=== PATIENT | male | born 1995 | race Caucasian/White ===

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

== ENCOUNTER 2017-12-17 11:37 | Emergency (ER) | payer MEDICAID, OTHER, SELFPAY ==
[2017-12-17 16:14] LABS: CONTROL LINE MONO INT CTR LINE PRESENT; MONO SCRN NEGATIVE (NEGATIVE)
== END 2017-12-17 16:58 | disposition home or self-care (01) ==
LOC: M ED 11:37
DX: J02.9 Acute pharyngitis, unspecified (principal); F17.210 Nicotine dependence, cigarettes, uncomplicated
CPT/HCPCS: 86308

== ENCOUNTER 2018-01-31 22:50 | Emergency (ER) | payer OTHER | END 2018-02-01 00:43 | disposition left against medical advice (07) | LOC: M ED 22:50 | DX: R10.9 Unspecified abdominal pain (principal); Z53.21 Procedure and treatment not carried out due to patient leaving prior to being seen by health care provider ==

== ENCOUNTER 2018-10-12 21:02 | Emergency (ER) | payer OTHER, SELFPAY ==
[~2018-10-12] VITALS: Ht 185.4 cm; Wt 66.4 kg
[2018-10-12 21:18] VITALS: BP 119/69
== END 2018-10-12 22:00 | disposition home or self-care (01) ==
LOC: M ED 21:02
DX: F10.129 Alcohol abuse with intoxication, unspecified (principal); F41.9 Anxiety disorder, unspecified; F19.10 Other psychoactive substance abuse, uncomplicated

== ENCOUNTER 2019-03-21 23:02 | Emergency (ER) | payer SELFPAY ==
[~2019-03-21] VITALS: Ht 170.2 cm; Wt 65.9 kg
[2019-03-21] MEDS ORDERED: HALOPERIDOL 5 MG/ML VIAL (J1630) IM STA (23:13)
[2019-03-21] MEDS ORDERED: diphenhydrAMINE INJ 50MG/ML VIAL (J1200) IM STA (23:13)
[2019-03-22] MEDS ORDERED: TETANUS/DIPHTHERIA TOX ADSORB ADULT 0.5ML SYR/VIAL (90714) IM ONE
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
[2019-03-22 06:19] VITALS: BP 101/55
== END 2019-03-22 06:22 | disposition home or self-care (01) ==
LOC: M ED 23:02 → EDBD 23:02 → M ED 03-22 06:22
DX: F10.229 Alcohol dependence with intoxication, unspecified (principal); S01.01XA Laceration without foreign body of scalp, initial encounter; X58.XXXA Exposure to other specified factors, initial encounter; Y92.89 Other specified places as the place of occurrence of the external cause; F91.9 Conduct disorder, unspecified
CPT/HCPCS: 12001; 70450; 70486; 72125; 90471; 90714; 96372; 99285; J1200; J1630

== ENCOUNTER 2019-03-31 00:48 | Emergency (ER) | payer OTHER, SELFPAY ==
[~2019-03-31] VITALS: Ht 185.4 cm; Wt 68.2 kg
[2019-03-31 00:49] VITALS: BP 142/76
== END 2019-03-31 01:57 | disposition home or self-care (01) ==
LOC: M ED 00:48
DX: Z48.02 Encounter for removal of sutures (principal); F10.10 Alcohol abuse, uncomplicated; F17.210 Nicotine dependence, cigarettes, uncomplicated

== ENCOUNTER 2019-07-11 15:22 | Emergency (ER) | payer OTHER, SELFPAY ==
[~2019-07-11] VITALS: Ht 185.4 cm; Wt 73.4 kg
[2019-07-11] MEDS ORDERED: ISOVUE-370 76% 100ML VIAL (Q9967) As Ordered ONE (16:00)
--- NOTE | 2019-07-11 16:44 | REP ---
Clinical: Submental soft tissue swelling and cellulitis. Technique: Two Panorex views. Findings: The mandible is intact and no osseous lesions are identified. The dentition is within normal limits and no obvious periodontal abscess or abnormalities noted. Impression: No obvious lesions appreciated. Electronically Signed by Vargas Mahmood MD 07/11/2019 04:35 P
--- NOTE | 2019-07-11 16:50 | REP ---
Clinical: Submental pain and cellulitis. Technique: Axial contrast enhanced images from the skull base to the thoracic inlet with coronal and sagittal re-formations using 75 ml Isovue 370 intravenous contrast material. Findings: Mild/moderate soft tissue swelling involving the subcutaneous tissues superficial to the mandible and submental space appreciated. Coronal images raise the possibility of a very small midline submental phlegmon/forming collection which warrants correlation with physical examination ( axial image 49; coronal image 16). Nasopharyngeal, parapharyngeal, retropharyngeal, and hypopharyngeal soft tissues including the adenoid and tonsillar tissues appear relatively symmetric and normal. Epiglottis and aryepiglottic folds are normal. The airway is patent and midline. Moderate mucoperiosteal changes involving the right maxillary and ethmoid sinuses suggests acute / chronic sinusitis. The bilateral orbits are symmetric and normal. The osseous structures are intact. Mild right cervical adenopathy is suggested with lymph nodes measuring up to approximately 13 mm. Impression: Soft tissue swelling suggesting cellulitis with possible small submental phlegmon/forming abscess. Acute/chronic sinusitis involving the right ethmoid and maxillary sinuses. Mild right cervical adenopathy. Electronically Signed by Vargas Mahmood MD 07/11/2019 04:41 P
[2019-07-11] MEDS ORDERED: cefTRIAXone SOD 1 GM in D5W MINI-BAG PLUS 50 ML IV ONE (17:00)
[2019-07-11] MEDS ORDERED: KEFL500C17 PO (17:03)
[2019-07-11 17:56] VITALS: BP 131/75
== END 2019-07-11 17:57 | disposition home or self-care (01) ==
LOC: M ED 15:22
DX: L03.211 Cellulitis of face (principal); F10.10 Alcohol abuse, uncomplicated; F17.210 Nicotine dependence, cigarettes, uncomplicated
CPT/HCPCS: 70355; 70491; 80047; 96365; 99284; J0696; Q9967

== ENCOUNTER 2020-02-26 22:33 | Emergency (ER) | payer MEDICAID, OTHER, SELFPAY ==
[~2020-02-26] VITALS: Ht 185.4 cm; Wt 73.1 kg
[~2020-02-26 22:33] MED LIST: KEFL500C17 PO
--- NOTE | 2020-02-26 23:20 | REPVR ---
PROCEDURE INFORMATION: Exam: XR Left Hand Exam date and time: 02/26/2020 11:13 PM Age: 24 years old Clinical indication: Pain; Hand; Left TECHNIQUE: Imaging protocol: XR Left hand. Views: 3 or more views. COMPARISON: No relevant prior studies available. FINDINGS: Bones/joints: Normal. No fracture or dislocation. Soft tissues: Normal. IMPRESSION: Negative left hand. Electronically signed by: Aj Hawkins On 02/26/2020 23:20:04 PM
[2020-02-27 00:27] VITALS: BP 115/76
== END 2020-02-27 00:52 | disposition home or self-care (01) ==
LOC: M ED 22:33
DX: S69.92XA Unspecified injury of left wrist, hand and finger(s), initial encounter (principal); M79.645 Pain in left finger(s); X58.XXXA Exposure to other specified factors, initial encounter; Y92.9 Unspecified place or not applicable; F43.10 Post-traumatic stress disorder, unspecified; F41.9 Anxiety disorder, unspecified; F17.210 Nicotine dependence, cigarettes, uncomplicated; F12.10 Cannabis abuse, uncomplicated

== ENCOUNTER 2021-01-12 13:47 | Emergency (ER) | payer OTHER ==
[~2021-01-12] VITALS: Ht 185.4 cm; Wt 67.9 kg
[2021-01-12 13:47] VITALS: BP 121/70
== END 2021-01-12 17:26 | disposition left against medical advice (07) ==
LOC: M ED 13:47
DX: R05 Cough (principal); U07.1 COVID-19; F17.210 Nicotine dependence, cigarettes, uncomplicated; F12.20 Cannabis dependence, uncomplicated

== ENCOUNTER 2021-06-12 18:52 | Emergency (ER) | payer OTHER ==
[~2021-06-12] VITALS: Ht 185.4 cm; Wt 69.2 kg
[2021-06-12 18:53] VITALS: BP 130/71
== END 2021-06-12 20:30 | disposition left against medical advice (07) ==
LOC: M ED 18:52
DX: Z53.29 Procedure and treatment not carried out because of patient's decision for other reasons (principal)

== ENCOUNTER 2022-01-03 12:52 | Emergency (ER) | payer OTHER ==
[~2022-01-03] VITALS: Ht 185.4 cm; Wt 66.2 kg
[2022-01-03 12:54] VITALS: BP 118/70
== END 2022-01-03 13:33 | disposition left against medical advice (07) ==
LOC: M ED 12:52
DX: Z53.21 Procedure and treatment not carried out due to patient leaving prior to being seen by health care provider (principal)

== ENCOUNTER → 2022-09-06 | Outpatient (REF) | payer OTHER | LOC: M LAB REF 16:32 | PROVIDERS: ATTEND Physician Assistant | DX: B34.9 Viral infection, unspecified (principal) ==

== ENCOUNTER → 2022-09-17 | Outpatient (CLI) | payer OTHER | LOC: M RAD 16:33 | PROVIDERS: ATTEND Physician Assistant Medical | DX: M54.50 Low back pain, unspecified (principal) ==

== ENCOUNTER 2023-03-23 15:15 | Emergency (ER) | payer OTHER ==
[2023-03-23] MEDS ORDERED: MUCI120T PO (18:58)
[2023-03-23] MEDS ORDERED: ACET325C5 PO (18:58)
[2023-03-23] MEDS ORDERED: PSEU-52 PO (18:58)
[2023-03-23] MEDS ORDERED: IBUP80TA PO (18:58)
[2023-03-23 19:14] VITALS: BP 126/82; TEMP 99; O2SAT 100
== END 2023-03-23 19:21 | disposition home or self-care (01) ==
LOC: M ED 15:15
DX: J06.9 Acute upper respiratory infection, unspecified (principal); F17.290 Nicotine dependence, other tobacco product, uncomplicated

== ENCOUNTER 2023-04-02 20:31 | Emergency (ER) | payer OTHER ==
[~2023-04-02 20:31] MED LIST changes: +ACET325C5 PO; +IBUP80TA PO; +MUCI120T PO; +PSEU-52 PO
== END 2023-04-02 21:21 | disposition left against medical advice (07) ==
LOC: M ED 20:31 → EDBD 20:31 → M ED 21:21
DX: Z53.21 Procedure and treatment not carried out due to patient leaving prior to being seen by health care provider (principal)

== ENCOUNTER → 2023-09-23 | Outpatient (REF) | payer OTHER | LOC: M LAB REF 16:29 | PROVIDERS: ATTEND Nurse Practitioner Family | DX: L03.114 Cellulitis of left upper limb (principal) ==

== ENCOUNTER 2024-04-16 22:17 | Emergency (ER) | payer OTHER ==
[~2024-04-16] VITALS: Ht 182.9 cm; Wt 86.4 kg
[2024-04-16 22:32] VITALS: BP 152/89; TEMP 99.3; O2SAT 97
== END 2024-04-17 01:50 | disposition left against medical advice (07) ==
LOC: M ED 22:17
DX: Z53.21 Procedure and treatment not carried out due to patient leaving prior to being seen by health care provider (principal)

== ENCOUNTER → 2024-04-17 | Outpatient (CLI) | payer OTHER ==
[2024-04-17 16:20] LABS: BASO # 0.1 10^3/uL (0.0-0.2); BASO % 0.7 % (0.0-1.0); EOS # 0.1 10^3/uL (0.0-0.5); EOS % 0.5 % (0.0-3.0); HEMATOCRIT 45.1 % (42.0-52.0); HEMOGLOBIN 14.8 g/dl (13.5-17.5); LYMPH # 1.5 10^3/uL (1.5-5.0); LYMPH % 14.4 % (24.0-44.0); MEAN CORPUSCULAR HEMOGLOBIN 28.7 pg (27.0-33.0); MEAN CORPUSCULAR HGB CONC 32.8 g/dl (32.0-36.5); MEAN CORPUSCULAR VOLUME 87.4 fl (80.0-96.0); MONO # 0.7 10^3/uL (0.0-0.8); MONO % 7.2 % (2.0-8.0); NEUTROPHILS # 7.9 10^3/uL (1.5-8.5); NEUTROPHILS % 76.9 % (36.0-66.0); PLATELET COUNT, AUTOMATED 285 10^3/uL (150-450); RED BLOOD COUNT 5.16 10^6/uL (4.30-6.10); WHITE BLOOD COUNT 10.2 10^3/uL (4.0-10.0)
[2024-04-17 16:21] LABS: ALBUMIN 4.4 G/DL (3.2-5.2); ALKALINE PHOSPHATASE 96 U/L (40-129); ALT/SGPT 23 U/L (7.0-40); AST/SGOT 17 U/L (<34); BILIRUBIN,TOTAL 0.4 MG/DL (0.3-1.2); BLOOD UREA NITROGEN 8 MG/DL (9-23); CALCIUM LEVEL 9.9 MG/DL (8.5-10.1); CARBON DIOXIDE LEVEL 30 MMOL/L (20-31); CHLORIDE LEVEL 104 MMOL/L (98-107); CREATININE FOR GFR 0.91 MG/DL (0.70-1.30); GLOMERULAR FILTRATION RATE > 60.0 (>60); GLUCOSE, FASTING 102 MG/DL (60-100); SODIUM LEVEL 140 MMOL/L (136-145); TOTAL PROTEIN 7.5 G/DL (5.7-8.2)
[2024-04-17 16:36] LABS: HEPATITIS B SURFACE ANTIGEN NEGATIVE (NEGATIVE)
[2024-04-17 16:48] LABS: HIV 1&2 SCREEN NEGATIVE (NEGATIVE)
[2024-04-17 16:55] LABS: HEPATITIS B CORE ANTIBODY IGM NEGATIVE (NEGATIVE)
[2024-04-22 15:02] LABS: LYME TOTAL ANTIBODY CIA <= 0.90 Index (<=0.90)
== END ==
LOC: M WUC 10:44
PROVIDERS: ATTEND Nurse Practitioner Family
DX: R50.9 Fever, unspecified (principal); J02.9 Acute pharyngitis, unspecified; L03.114 Cellulitis of left upper limb